=== PATIENT | female | born 1945 | race Caucasian/White ===

== ENCOUNTER 2025-08-19 09:38 | Emergency (ER) | payer MEDICARE ==
[2025-08-19 10:19] LABS: #Basophils 0.1 thou/uL (0.0-0.2); #Eosinophils 0.2 thou/uL (0.0-0.7); #Lymphocytes 1.8 thou/uL (1.20-3.40); #Monocytes 0.5 thou/uL (0.11-0.59); #Neutrophils 5.2 thou/uL (1.40-6.50); %Basophils 0.9 % (0.0-1.0); %Eosinophils 2.5 % (0.0-10.0); %Lymphocytes 22.8 % (21.0-51.0); %Monocytes 6.8 % (0.0-10.0); %Neutrophils 67.1 % (42.0-75.0); Hematocrit 38.2 % (36.0-47.0); Hemoglobin 12.3 g/dL (12.0-16.0); Mean Corpuscular Hemoglobin 31.0 pg (27.0-31.0); Mean Corpuscular Volume 95.8 fl (78.0-98.0); Platelet Count 159 10x3/uL (130-400); Red Blood Cell (RBC) Count 3.99 mill/uL (4.20-5.40); White Blood Cell (WBC) Count 7.8 10x3/uL (4.8-10.8)
[2025-08-19] MEDS ORDERED: Iopamidol 370 76% 100 ML VIAL ONE (10:33)
[2025-08-19 10:35] LABS: ALT (SGPT) 15 U/L (Less than 34); AST (SGOT) 19 U/L (11-34); Albumin 3.8 g/dL (3.1-4.5); Alkaline Phosphatase 73 U/L (40-110); Anion Gap 16 mmol/L (10-20); BUN (Urea Nitrogen) 31 mg/dL (9.8-20.1); Bilirubin, Total 0.4 mg/dL (0.3-1.2); Calc. Creatinine Clearance 0 mL/min (70-130); Calcium 9.3 mg/dL (7.8-10.44); Carbon Dioxide 27 mmol/L (23-31); Chloride 105 mmol/L (98-107); Globulin 2.6 g/dL (2.4-3.5); Glucose 139 mg/dL (83-110); Potassium 3.8 mmol/L (3.5-5.1); Sodium 144 mmol/L (136-145); Troponin I 0.014 ng/mL (< 0.028)
[2025-08-19] MEDS ORDERED: Aspirin 325 MG TAB ONE (11:05)
[2025-08-19] MEDS ORDERED: Pantoprazole 40 MG DR.TAB ONE (12:33)
== END 2025-08-19 12:40 | disposition home or self-care (01) ==
LOC: BURERS 09:38
DX: G45.9 Transient cerebral ischemic attack, unspecified (principal); I71.20 Thoracic aortic aneurysm, without rupture, unspecified; R29.701 NIHSS score 1; I10 Essential (primary) hypertension; E78.5 Hyperlipidemia, unspecified; J44.9 Chronic obstructive pulmonary disease, unspecified; F17.210 Nicotine dependence, cigarettes, uncomplicated; Z79.82 Long term (current) use of aspirin; Z55.6 Problems related to health literacy; Z79.899 Other long term (current) drug therapy
CPT/HCPCS: 36415; 70450; 70496; 70498; 80053; 84484; 85025; 93005; Q9967